=== PATIENT | male | born 1990 | race Caucasian/White ===

== ENCOUNTER 2018-01-20 15:55 | Emergency (ER) | payer OTHER, SELFPAY ==
[2018-01-20 15:56] VITALS: BP 119/86; PULSE 130; RESP 24; TEMP 36.7; O2SAT 99; BMI 42.3
[2018-01-20 16:04] VITALS: O2SAT 99
--- NOTE | 2018-01-20 16:09 | EKG12_ITS ---
Test Reason : SOB Blood Pressure : / mmHG Vent. Rate : 119 BPM Atrial Rate : 119 BPM P-R Int : 150 ms QRS Dur : 090 ms QT Int : 306 ms P-R-T Axes : 040 -03 063 degrees QTc Int : 430 ms Sinus tachycardia Otherwise normal ECG Confirmed by NICOLAS BRIGGS, RICHARD ([id number]), editorial project manager KAVITA DAILEY ([id number]) on 01/22/2018 12:58:41 PM Referred By: QUANG Confirmed By:RICHARD VALENZUELA MD
--- NOTE | 2018-01-20 16:09 | RAD_ITS ---
STUDY: X-RAY CHEST REASON FOR EXAM: Male, 28 years old. Cough. TECHNIQUE: Frontal and lateral views of the chest. COMPARISON: November 20, 2017 FINDINGS: There is low volume inspiration. There is no demonstrated pleural abnormality. Normal size heart. Normal mediastinum and lawrence. Normal visualized pulmonary arteries. Normal visualized aortic arch and descending thoracic aorta. Normal visualized thoracic spine. Normal visualized ribs, clavicles, and shoulders. There is no demonstrated abnormality of the visualized soft tissue structures of the upper abdomen. RAD/Chest PA and Lateral IMPRESSION: Low-volume inspiration. No acute pathology. Electronically Signed: Roland Chamberlain MD at 16:42 EDT , Service support ,
[2018-01-20] MEDS: Albuterol 2.5 MG/3 ML VIAL.NEB. INHALATION (16:11)
[2018-01-20] MEDS: Ipratropium/Albuterol Sulfate 3 ML AMPUL.NEB INHALATION (16:11)
[2018-01-20 16:12] VITALS: PULSE 124; RESP 22
--- NOTE | 2018-01-20 16:18 | ED.DCSUM_ITS ---
- ER Visit Summary Date of Service: 01/20/18 Chief Complaint: Shortness of breath and cough History of Present Illness: The patient is a 28 M presenting for evaluation secondary shortness of breath and cough. Patient states that he does have an underlying history of asthma, really has not had any issues since he was a child. Patient states however that a month ago he was in with a respiratory illness and was sent home with a rescue inhaler. Patient states that he had been doing well, went to the [employer] for his birthday yesterday, and when he woke up today states that he had basically a sudden onset of wheezing shortness of breath and very frequent cough. He does endorse some chest tightness but no chest pain. Occasional dizziness. Patient states that he has had some posttussive emesis secondary to this. 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 Denies any history of cardiac disease. He has not had any travel longer than that what it took him to get to [place]. No recent immobilization. No hemoptysis. No other constitutional symptoms. Physical Examination: Vital signs notable for heart rate of 130, respiratory rate of 24, pulse ox 99%. Well-nourished well-developed obese male no acute distress. Head normocephalic. Moist mucous membranes. Oropharynx clear, neck was supple no lymphadenopathy. Heart was regular and tachycardic no murmurs. Lungs sounds showed evidence of very mild wheezes throughout the lung hoskins no evidence of retractions or respiratory distress. Abdomen soft nontender. Calves are supple no palpable cord no evidence of skin changes of the lower extremities. Patient was alert and oriented. Test Results: EKG shows a sinus rate of [address] segments, normal T waves, normal intervals. No evidence of right ventricular strain or S1 , Q3, T3 morphology. PA and lateral chest x-ray by my personal interpretation as well as radiology is negative with some hypoinflation. D-dimer found to be negative. Emergency Department Course and Treatment: Patient presented for evaluation secondary to frequent cough and shortness of breath. Patient was evaluated with a chest x-ray which was negative, an EKG which showed tachycardia. Patient was given a DuoNeb and an albuterol treatment is prednisone. Repeat evaluation showed he had improvement, but still maintained some tachycardia and frequent coughing. I cannot totally rule the patient out for pulmonary embolism without d-dimer, so this was performed and was found to be negative. Patient does have a mild amount of wheezing associated with this, he has normal oxygenation, is otherwise nontoxic do not believe that further workup is necessary. Patient likely has a mild asthma exacerbation at this point, he will be treated with a course of prednisone and follow-up with his primary care physician. Disposition: Discharge Impression: 1. Asthma exacerbation This note was generated with [employer] dictation software. It may contain incorrect words, spelling, and punctuation that were not noted in review of the chart prior to signing ED Disposition - Plan for ED Patient: Disposition: Home or Assisted Living Chief Complaint: Shortness of Breath Diagnosis: Asthma exacerbation Instructions: ED Reactive Airway Disease Prescriptions: Prednisone [Deltasone] 60 mg PO DAILY #15 tab Referrals: Carly Vance DO [STAFF PHYSICIAN] -
[2018-01-20] MEDS: MethylPREDNISolone 125 MG/2 ML Vial 60 MG IV (16:23)
[2018-01-20 17:11] LABS: D-Dimer Quantitative (DVT/PE) < 0.27 FEU/ug/m (0.27-0.49)
[2018-01-20] MEDS: Benzonatate 100 MG Capsule 200 MG PO (17:22)
[2018-01-20 17:44] VITALS: BP 137/73; PULSE 89; RESP 18; TEMP 36.6; O2SAT 99
== END 2018-01-20 17:45 | disposition home or self-care (01) ==
PROVIDERS: Emergency Provider Emergency Medicine
DX: J45.901 Unspecified asthma with (acute) exacerbation (principal); E66.9 Obesity, unspecified; Z68.41 Body mass index [BMI] 40.0-44.9, adult; Z72.0 Tobacco use
CPT/HCPCS: 71046; 85379; 93005; 94640; 96374; 99283

== ENCOUNTER 2018-01-21 08:13 | Observation (INO) | payer OTHER, SELFPAY ==
[2018-01-21] VITALS (10 sets, daily range): BP systolic 107–152; BP diastolic 63–99; PULSE 101–131; RESP 16–22; TEMP 36.7–36.8; O2SAT 91–97; BMI 42.3; BMI 41.4; BMI 41.5
--- NOTE | 2018-01-21 08:30 | RAD_ITS ---
STUDY: X-RAY CHEST REASON FOR EXAM: Male, 28 years old. Chest tightness TECHNIQUE: PA and lateral views of the chest. COMPARISON: 01/20/2018 FINDINGS: EKG leads overlie the chest The lungs are clear and expanded. There is no demonstrated pleural abnormality. Normal size heart. Normal mediastinum and lawrence. Normal visualized pulmonary arteries. Normal visualized aortic arch and descending thoracic aorta. Normal visualized thoracic spine. Normal visualized ribs, clavicles, and shoulders. There is no demonstrated abnormality of the visualized soft tissue structures of the upper abdomen. RAD/Chest PA and Lateral IMPRESSION: Normal x-ray examination of the chest. Electronically Signed: Christopher Brown MD at 9:27 EDT , Service support ,
--- NOTE | 2018-01-21 08:30 | EKG12_ITS ---
Test Reason : ASTHMA Blood Pressure : / mmHG Vent. Rate : 111 BPM Atrial Rate : 111 BPM P-R Int : 148 ms QRS Dur : 094 ms QT Int : 344 ms P-R-T Axes : 049 005 041 degrees QTc Int : 467 ms Sinus tachycardia Otherwise normal ECG Confirmed by NICOLAS BRIGGS, RICHARD ([id number]), editor school photograph KAVITA DAILEY ([id number]) on 01/22/2018 1:15:08 PM Referred By: DEVYN Confirmed By:RICHARD VALENZUELA MD
[2018-01-21] MEDS: Albuterol 2.5 MG/3 ML VIAL.NEB. INHALATION ×4 (08:40→19:40)
[2018-01-21] MEDS: Ipratropium/Albuterol Sulfate 3 ML AMPUL.NEB INHALATION (08:40)
[2018-01-21 08:49] LABS: Absolute Lymphocyte Count 1.02 X10^3/ul (0.83-4.51); Absolute Neutrophil Count 4.7 X10^3/uL (2.0-7.7); Basophil# 0.01 X10^3/uL; Basophil% 0.2 % (0-1); Hemoglobin 15.6 g/dl (13.0-16.5); Lymphocyte # 1.02 X10^3/ul (4.0); Lymphocyte % 15.7 % (19-41); Mean Corp Hgb Conc 35.5 g/gl (32-36); Mean Corpuscular Hgb 30.4 pg (27.0-32.0); Mean Corpuscular Volume 85.6 fL (80-94); Mean Platelet Vol. 10.4 fl (6.2-12.0); Monocyte% 12.3 % (0-10); Neutrophil # 4.66 X10^3/uL (2.7-7.7); Neutrophil % 71.6 % (47-70); POSITIVE COUNT NO; POSITIVE DIFFERENTIAL NO; POSITIVE MORPHOLOGY NO; Platelet Count 263 K/mm3 (150-450); RBC Distribution Width CV 12.6 % (11.6-14.6); RBC Distribution Width SD 39.1 fl (35.1-43.9); Red Blood Count 5.14 M/mm3 (4.6-6.2); White Blood Count 6.5 K/mm3 (4.4-11.0)
[2018-01-21] MEDS: MethylPREDNISolone 125 MG/2 ML Vial IV (09:16)
[2018-01-21 09:22] LABS: Anion Gap 13 (5-15); BUN 16 mg/dL (7-18); BUN/Creat Ratio 13.3 RATIO (10-20); Calcium,Total 8.2 mg/dL (8.5-10.1); Chloride 99 mmol/L (98-107); EST Glomerular Filtration Rate 77 mL/min (>60); Est Glom Filt Rate - Afr Amer 93 mL/min (>60); Estimated Creatinine Clearance 118.48 ml/min; Glucose 469 mg/dL (74-106); Potassium 3.9 mmol/L (3.5-5.1); Sodium Level 133 mmol/L (136-145)
[2018-01-21] MEDS: 0.9% Normal Saline 1,000 ML 999 ML IV ×2 (09:26→11:09)
--- NOTE | 2018-01-21 11:46 | NURSING ---
212 ASTHMA FLARE UP, UNCONTROLLED DM TERI
--- NOTE | 2018-01-21 12:27 | HP.PCM_ITS ---
Addendum entered and electronically signed by BETTY Vuong 01/21/18 12:28: Code Visit surgical hx - prior toe surgery Original Note: Problem List (1) Asthma exacerbation Status: Acute (2) Diabetes Status: Chronic Qualifiers: Diabetes mellitus type: type 2 (3) Morbid obesity Status: Chronic History of Present Illness Date of Admission: 01/21/18 Chief Complaint: SOB The patient is a 28 year old M with a hx of asthma and prediabetes who presents to the ER with SOB. He was here yesterday for SOB and wheezing, he was given steroids and breathing treatments and sent home. This morning he felt that his asthma had returned and he returned to the ER. He was given steroids and breathing treatments again and improved significantly. He has not had problems with asthma in a while, he does have a nebulizer but has not used it in a long time and his albuterol is . He was however found to have severely high blood sugar. He stated that he had prediabetes in high school. He states that he has 200 lb weight loss over two years but feels it is due to exercise and diet. He denies urinary frequency or excessive thirst. His ketone level is negative. He has not been treated for DM in the past. He currently does not feel SOB or wheezy in the ER. No CP. No dizziness or LH. No palp, although he remains somewhat tachy. [] Past Medical History Past Medical History (Chronic Problems): Chronic Problems Diabetes (Chronic) Morbid obesity (Chronic) Allergies erythromycin base [Erythromycin Base] Allergy (Verified 01/20/18 15:58) Rash Home Medications: Ambulatory Orders Medication Instructions Recorded Albuterol Aerosols [Ventolin 2.5 mg INHALATION Q2H PRN PRN #30 11/20/17 Aerosols] vial.neb. Prednisone [Deltasone] 60 mg PO DAILY #15 tab 01/20/18 Lives: With Family Smoking Status: Never smoker Tobacco Use: Non-smoker Alcohol: Occasional Drugs: None - *Family History Maternal History Items: No pertinent history Paternal History Items: Diabetes Review of Systems Constitutional: Reports: Weight Change - weight loss 200 lb x 2 years. Denies: Chills, Fever HEENT: Denies: Head Aches, Sinus Congestion, Sinus Drainage Cardiovascular: Denies: Chest Pain, Palpitations Respiratory: Reports: Shortness of Breath, Wheezing. Denies: Cough, Shortness of breath at rest, Sputum production Gastrointestinal: Denies: Abdominal Pain, Nausea, Vomiting Genitourinary: Denies: Dysuria Musculoskeletal: Denies: Joint Pain, Joint Tenderness Skin: Denies: Rash, Wounds Neurological: Denies: Numbness, Tingling, Focal weakness Psychiatric: Denies: Anxiety, Depression, Homicidal Ideations, Suicidal Ideations Hematologic/ Lymphatic: Denies: Easy Bruising, Easy Bleeding VTE Information - Inpt Only VTE Present on Admission: No VTE Mechan Device Prophylaxis: SCD's VTE Pharm Prophylaxis ordered?: No Patient Problems: Active and Suspected Problems Asthma exacerbation (Acute) - Physical Exam General: Alert, Oriented x3, Cooperative HEENT: Atraumatic, PERRLA, EOMI, Normocephalic Neck: Supple, No JVD, Negative Carotid Bruits Lungs: Clear to auscultation, Normal air movement Cardiovascular: Regular rate, No murmurs Abdomen: Bowel Sounds Present, Soft, Non Tender, Obese Extremities: No edema, Capillary Refill Less than 3 Seconds Skin: No rashes, No breakdown Musculoskeletal: No Tenderness to Palpation of Joints or Extremities Neurological: Cranial nerves II-XII grossly intact Psych/Mental Status: Normal Affect, Appropriate, Alert and oriented to time, place, person, mood and affect Vital Signs Temp Pulse Resp BP Pulse Ox 98.2 F 113 H 17 120/63 91 01/21/18 08:13 01/21/18 11:52 01/21/18 11:52 01/21/18 11:52 01/21/18 11:52 Assessment/Plan Active and Suspected Problems Asthma exacerbation (Acute) 1. Asthma exacerbation failed outpatient therapy, presented to ED 2 days in a row - significantly improved in ER not requiring O2. Pt will be maintained on aerosols and steroids. He will need new nebulizer meds at [place] and a rescue inhaler. CXR normal. He is not a smoker. Troponin neg. EKG sinus tach. 2. Suspect T2DM - severely uncontrolled glucose in the ER and significant weight loss. Check A1C and plan to start insulin therapy. Suggest 0.2 u/kg levemir + Sliding scale insulin. He has not been treated before so he would be able to start orals. Acetone level neg. 3. Hyponatremia - suspect pseudohyponatremia 2/2 glucose. Check AM BMP. 4. Morbid obesity - dietary consult. DVT ppx: SCDs This patient was seen by Tyler Barton PA-C under the supervision of Doctor Hernandez.
[2018-01-21 13:10] LABS: Bedside Glucose 432 mg/dL (70-110)
[2018-01-21 13:24] LABS: Hemoglobin A1c 10.9 % (4.2-6.3)
[2018-01-21] MEDS: 0.9% Normal Saline 1,000 ML 125 ML IV ×2 (13:37→21:16)
[2018-01-21] MEDS: 0.9% NaCl Peripheral Flush Adult/Peds IV (13:37)
[2018-01-21 16:11] LABS: Bedside Glucose 418 mg/dL (70-110)
[2018-01-21] MEDS: Budesonide Respules 0.5 MG/2 ML AMPUL.NEB. INHALATION (19:40)
[2018-01-22 00:41] LABS: Bedside Glucose 368 mg/dL (70-110)
[2018-01-22 00:59] VITALS: PULSE 103; RESP 16
[2018-01-22] MEDS: Albuterol 2.5 MG/3 ML VIAL.NEB. INHALATION ×2 (00:59→06:58)
[2018-01-22 03:13] VITALS: BP 130/78; PULSE 92; RESP 16; TEMP 36.6; O2SAT 96
[2018-01-22] MEDS: 0.9% Normal Saline 1,000 ML 125 ML IV (05:23)
[2018-01-22 06:35] LABS: Bedside Glucose 239 mg/dL (70-110)
[2018-01-22 06:58] VITALS: PULSE 90; RESP 18; O2SAT 95
[2018-01-22] MEDS: Budesonide Respules 0.5 MG/2 ML AMPUL.NEB. INHALATION (06:58)
[2018-01-22 09:13] VITALS: BP 121/67; PULSE 99; RESP 16; TEMP 36.8; O2SAT 96
[2018-01-22 10:10] LABS: Bedside Glucose 291 mg/dL (70-110)
--- NOTE | 2018-01-22 11:05 | PCM.DC ---
- Discharge Diagnoses Current Active Problems: Current Active and Chronic Problems Asthma exacerbation (Acute) Diabetes (Chronic) Morbid obesity (Chronic) You will use the following diet at home:: Calorie/Carbohydrate Controlled (specify 1200, 1400, etc) - 1800 yann/day Your food should be the consistency of: Regular Your liquids should be the consistency of: Regular/Thin Discharge Activity: Return to Normal Activity Additional Instructions: Please check your blood sugar at least once per day, preferably in the morning before you eat, and record the date, time, and blood sugar reading in a log, and present this data to your doctor at each follow up appointment. Allergies/Adverse Reactions: Allergies erythromycin base [Erythromycin Base] Allergy (Verified 01/20/18 15:58) Rash Medications to take at Discharge Albuterol Aerosols [Ventolin Aerosols] 2.5 mg INHALATION Q4H PRN PRN #30 vial.neb. 01/22/18 Albuterol IH (ProAir) [Proair Hfa] 1 puff INHALATION Q6H PRN PRN #1 inhaler 01/22/18 Insulin Detemir [Levemir FlexPen] 20 units SC BID #1 insuln.pen 01/22/18 Metformin(XR) [Glucophage Xr] 1,000 mg PO BID #60 tab 01/22/18 The following prescriptions were given: Albuterol Aerosols [Ventolin Aerosols] 2.5 mg INHALATION Q4H PRN PRN #30 vial.neb. PRN Reason: Sob &/Or Wheezing Albuterol IH (ProAir) [Proair Hfa] 1 puff INHALATION Q6H PRN PRN #1 inhaler PRN Reason: Sob &/Or Wheezing Insulin Detemir [Levemir FlexPen] 20 units SC BID #1 insuln.pen Metformin(XR) [Glucophage Xr] 1,000 mg PO BID #60 tab Primary Care Physician: Care Physician,No Primary [Primary Care Provider] - Please Follow Up With: Maki Marquez MD - PCP When: Next Sunday Please Follow Up With: ELIU De Jesus - Endocrine REGIONAL RETAIL SALES MANAGER When: Appointment in February Proposed Discharge Date: 01/22/18
--- NOTE | 2018-01-22 11:19 | CASEMGMT ---
See RN CM Assessment Link. -Intro role of CM to patient in room. He states he has good understanding of diabetic teaching, has completed teach back for glood glucose monitoring. -Discussed need for f/u. Appts made with Dr. Marquez and Meghana Headley. Pt states he will be compliant to see physicians. -Questions answered. Tyler Castro to provide script for supplies and new medications. Johnny KELLYN RN ACM
--- NOTE | 2018-01-22 15:35 | PCM.DC.SUM ---
Discharge Date and Diagnosis Date of Admission: 01/21/18 Date of Discharge: 01/22/18 - Primary Discharge Diagnosis Acute asthma exacerbation Severely uncontrolled type 2 diabetes mellitus-no prior diagnosis Morbid obesity - Secondary Discharge Diagnosis Chronic Problems Diabetes (Chronic) Morbid obesity (Chronic) Hospital Course and Treatment Imaging Results: RAD/Chest PA and Lateral IMPRESSION: Normal x-ray examination of the chest. Operations: None Procedures: None Summary of Care Provided: Physical exam on day of discharge: General: Resting comfortably NAD Psych: A/Ox3 normal affect HEENT: PEARRLA AT NC Neck: Supple NT CV: RRR no m/t/r/g/h Resp: CTA, I do not appreciate any wheezing this morning. Abd: [id number] Soft NT no guarding or rigidity, morbid obesity Ext: DP2+= no edema Skin: W/D normal turgor Lymph/Heme: No active bleeding or adenopathy Neuro: CN2-12 intact Hospital course: The patient is a 28 year old M with a past medical history of asthma, morbid obesity who presented to the emergency room with shortness of breath and wheezing. He had presented to the ER the day prior for the same thing was given aerosols and steroids and sent home. He woke up the morning of presentation and felt that his symptoms had returned. When he represented to the emergency room he was treated with steroids and aerosols after which his symptoms improved significantly and he had no oxygen requirement, however he was found to have a severely elevated blood sugar at 496. Patient reported that he thought he was prediabetic in high school but never been diagnosed with diabetes. He also revealed that he had lost about 200 pounds over the past 2 years. He is admitted to the general medical floor for recurrent acute asthma exacerbation and for severely uncontrolled diabetes. An A1c was checked which demonstrated severe diabetes at a level of 10.9. He was started on long-acting insulin and metformin. He was given diabetic education and dietary/nutrition consult. He was given diabetic education including glucometer use, proper insulin injections, and dietary decisions. The patient did not have a PCP and we arranged for him to follow-up in 10 days with a GP in the area, will also arrange for him to see ROGELIO jonas for endocrinology. He was discharged home in stable condition with an albuterol inhaler, albuterol nebulizer treatments as he does have a home nebulizer, metformin, and Levemir. This patient was seen by Tyler Barton PA-C under the supervision of Doctor David. [] Discharge Diet: 1999 Calorie Control Diet Discharge Activity: Return to Normal Activity Home Medications: Medications to take at Discharge Albuterol Aerosols [Ventolin Aerosols] 2.5 mg INHALATION Q4H PRN PRN #30 vial.neb. 01/22/18 Albuterol IH (ProAir) [Proair Hfa] 1 puff INHALATION Q6H PRN PRN #1 inhaler 01/22/18 Insulin Detemir [Levemir FlexPen] 20 units SC BID #1 insuln.pen 01/22/18 Metformin(XR) [Glucophage Xr] 1,000 mg PO BID #60 tab 01/22/18 Following Prescrptions Were Given to Patient: Albuterol Aerosols [Ventolin Aerosols] 2.5 mg INHALATION Q4H PRN PRN #30 vial.neb. PRN Reason: Sob &/Or Wheezing Albuterol IH (ProAir) [Proair Hfa] 1 puff INHALATION Q6H PRN PRN #1 inhaler PRN Reason: Sob &/Or Wheezing Insulin Detemir [Levemir FlexPen] 20 units SC BID #1 insuln.pen Metformin(XR) [Glucophage Xr] 1,000 mg PO BID #60 tab Primary Care Physician: Care Physician,No Primary [Primary Care Provider] - Please Follow Up With: Maki Marquez MD - PCP When: Next Sunday Please Follow Up With: ELIU De Jesus - Endocrine FACILITIES ASSISTANT When: Appointment in February Disposition: Home Minutes spent on discharge:: 40 Patient Condition:: Stable Medical Necessity - Tobacco Use Smoking Status: Never smoker Tobacco Use: Non-smoker Meaningful Use Info Meaningful Use Diagnoses (Choose all that apply): None applicable
--- NOTE | 2018-01-22 15:41 | DS.PCM_ITS ---
Discharge Date and Diagnosis Date of Admission: 01/21/18 Date of Discharge: 01/22/18 - Primary Discharge Diagnosis Acute asthma exacerbation Severely uncontrolled type 2 diabetes mellitus-no prior diagnosis Morbid obesity - Secondary Discharge Diagnosis Chronic Problems Diabetes (Chronic) Morbid obesity (Chronic) Hospital Course and Treatment Imaging Results: RAD/Chest PA and Lateral IMPRESSION: Normal x-ray examination of the chest. Operations: None Procedures: None Summary of Care Provided: Physical exam on day of discharge: General: Resting comfortably NAD Psych: A/Ox3 normal affect HEENT: PEARRLA AT NC Neck: Supple NT CV: RRR no m/t/r/g/h Resp: CTA, I do not appreciate any wheezing this morning. Abd: [id number] Soft NT no guarding or rigidity, morbid obesity Ext: DP2+= no edema Skin: W/D normal turgor Lymph/Heme: No active bleeding or adenopathy Neuro: CN2-12 intact Hospital course: The patient is a 28 year old M with a past medical history of asthma, morbid obesity who presented to the emergency room with shortness of breath and wheezing. He had presented to the ER the day prior for the same thing was given aerosols and steroids and sent home. He woke up the morning of presentation and felt that his symptoms had returned. When he represented to the emergency room he was treated with steroids and aerosols after which his symptoms improved significantly and he had no oxygen requirement, however he was found to have a severely elevated blood sugar at 496. Patient reported that he thought he was prediabetic in high school but never been diagnosed with diabetes. He also revealed that he had lost about 200 pounds over the past 2 years. He is admitted to the general medical floor for recurrent acute asthma exacerbation and for severely uncontrolled diabetes. An A1c was checked which demonstrated severe diabetes at a level of 10.9. He was started on long-acting insulin and metformin. He was given diabetic education and dietary/nutrition consult. He was given diabetic education including glucometer use, proper insulin injections, and dietary decisions. The patient did not have a PCP and we arranged for him to follow-up in 10 days with a GP in the area, will also arrange for him to see ROGELIO jonas for endocrinology. He was discharged home in stable condition with an albuterol inhaler, albuterol nebulizer treatments as he does have a home nebulizer, metformin, and Levemir. This patient was seen by Tyler Barton PA-C under the supervision of Doctor David. [] Discharge Diet: 1999 Calorie Control Diet Discharge Activity: Return to Normal Activity Home Medications: Medications to take at Discharge Albuterol Aerosols [Ventolin Aerosols] 2.5 mg INHALATION Q4H PRN PRN #30 vial.neb. 01/22/18 Albuterol IH (ProAir) [Proair Hfa] 1 puff INHALATION Q6H PRN PRN #1 inhaler Insulin Detemir [Levemir FlexPen] 20 units SC BID #1 insuln.pen 01/22/18 Metformin(XR) [Glucophage Xr] 1,000 mg PO BID #60 tab 01/22/18 Following Prescrptions Were Given to Patient: Albuterol Aerosols [Ventolin Aerosols] 2.5 mg INHALATION Q4H PRN PRN #30 vial.neb. PRN Reason: Sob &/Or Wheezing Albuterol IH (ProAir) [Proair Hfa] 1 puff INHALATION Q6H PRN PRN #1 inhaler PRN Reason: Sob &/Or Wheezing Insulin Detemir [Levemir FlexPen] 20 units SC BID #1 insuln.pen Metformin(XR) [Glucophage Xr] 1,000 mg PO BID #60 tab Primary Care Physician: Care Physician,No Primary [Primary Care Provider] - Please Follow Up With: Maki Marquez MD - PCP When: Next Sunday Please Follow Up With: ELIU De Jesus - Endocrine PHOTOGRAPH PRINTER When: Appointment in February Disposition: Home Minutes spent on discharge:: 40 Patient Condition:: Stable Medical Necessity - Tobacco Use Smoking Status: Never smoker Tobacco Use: Non-smoker Meaningful Use Info Meaningful Use Diagnoses (Choose all that apply): None applicable
--- NOTE | 2018-02-06 02:31 | ED.VISSUMM ---
- ER Visit Summary Date of Service: 01/21/18 Dictation was not completed. Late entry on February 06, 2018. Chief Complaint: Cannot breathe History of Present Illness: The patient is a 28 M with trouble breathing and chest tightness. This came on gradually over several days. Patient was seen previously in the emergency department and treated with aerosols and steroids. He was sent home. His symptoms are worse today. Physical Examination: Tachycardic at 125. Respiratory rate 22. Afebrile. Very mild respiratory distress. Wheezing in all hoskins. Diminished sounds as well. Heart tachycardic. The remainder of the exam is unremarkable. Test Results: EKG showed sinus rhythm at a rate of 111. Chest x-ray was normal. CBC normal. Troponin normal. Acetone is negative. Glucose 496. Emergency Department Course and Treatment: Patient was treated with breathing treatments and steroids. He also received a fluid bolus. Patient has a history of borderline diabetes and it looks like the steroids have caused his glucose to increase. He is not in DKA or any hyperosmolar state. I do believe he will benefit from inpatient care. He will need continued steroids and I am concerned about his blood sugars. He will likely benefit from insulin at least in the short-term. I spoke with the hospitalist to evaluate. Treatment Plan: As above Disposition: Admission Impression: 1. Asthma exacerbation 2. Hyperglycemia This note was generated with [employer] dictation software. It may contain incorrect words, spelling, and punctuation that were not noted in review of the chart prior to signing ED Disposition - Plan for ED Patient: Disposition: Acute Care Hospital [facility] Chief Complaint: Asthma
--- NOTE | 2018-02-06 02:38 | ED.DCSUM_ITS ---
- ER Visit Summary Date of Service: 01/21/18 Dictation was not completed. Late entry on February 06, 2018. Chief Complaint: Cannot breathe History of Present Illness: The patient is a 28 M with trouble breathing and chest tightness. This came on gradually over several days. Patient was seen previously in the emergency department and treated with aerosols and steroids. He was sent home. His symptoms are worse today. Physical Examination: Tachycardic at 125. Respiratory rate 22. Afebrile. Very mild respiratory distress. Wheezing in all hoskins. Diminished sounds as well. Heart tachycardic. The remainder of the exam is unremarkable. Test Results: EKG showed sinus rhythm at a rate of 111. Chest x-ray was normal. CBC normal. Troponin normal. Acetone is negative. Glucose 496. Emergency Department Course and Treatment: Patient was treated with breathing treatments and steroids. He also received a fluid bolus. Patient has a history of borderline diabetes and it looks like the steroids have caused his glucose to increase. He is not in DKA or any hyperosmolar state. I do believe he will benefit from inpatient care. He will need continued steroids and I am concerned about his blood sugars. He will likely benefit from insulin at least in the short-term. I spoke with the hospitalist to evaluate. Treatment Plan: As above Disposition: Admission Impression: 1. Asthma exacerbation 2. Hyperglycemia This note was generated with [employer] dictation software. It may contain incorrect words, spelling, and punctuation that were not noted in review of the chart prior to signing ED Disposition - Plan for ED Patient: Disposition: Acute Care Hospital [facility] Chief Complaint: Asthma
== END 2018-01-22 11:55 | disposition home or self-care (01) ==
LOC: ED 08:47 → MS2 12:02
PROVIDERS: Admitting Provider Internal Medicine; Emergency Provider Emergency Medicine; Visit Provider Internal Medicine
DX: J45.901 Unspecified asthma with (acute) exacerbation (principal); E11.65 Type 2 diabetes mellitus with hyperglycemia; E66.01 Morbid (severe) obesity due to excess calories; Z68.41 Body mass index [BMI] 40.0-44.9, adult; Z71.3 Dietary counseling and surveillance; E87.1 Hypo-osmolality and hyponatremia
CPT/HCPCS: 71046; 80048; 82009; 82962; 83036; 84484; 85025; 93005; 94640; 96361; 96374; 97802; 99218; 99283; J7030; A4216; G0378

== ENCOUNTER 2019-07-16 08:27 | Emergency (ER) | payer OTHER, SELFPAY ==
[2019-07-16 08:28] VITALS: BP 142/72; PULSE 109; RESP 17; TEMP 36.8; O2SAT 97; BMI 40.8
--- NOTE | 2019-07-16 08:39 | VDLE_ITS ---
Reason For Study: Pain RIGHT GSV is normal. CFV is compressible, spontaneous, phasic, competent and demonstrates normal augmentation. FV is compressible, spontaneous, phasic, competent and demonstrates normal augmentation. POP V is compressible, spontaneous, phasic, competent and demonstrates normal augmentation. T/P Trunk is compressible. PTV is compressible. RT PerV is compressible. Procedure Exam performed portable in ED. A preliminary report was called and/or faxed to [place]. Interpretation Summary There is no evidence of right lower extremity deep vein thrombosis. Right great saphenous vein appears patent and compressible segmentally. Ordering Physician: Tomasz Golden Performed By: Venessa Palomo RVT
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
--- NOTE | 2019-07-16 09:50 | ED.DEP ---
ED Disposition - Plan for ED Patient: Instructions: CONTUSION, Lower Extremity, MUSCLE STRAIN, Extremity Prescriptions: Naproxen [Naprosyn] 500 mg PO BID PRN #20 tab Prescription Printed Referrals: Care Physician,No Primary [Primary Care Provider] - 3-5 Days
== END 2019-07-16 09:59 | disposition home or self-care (01) ==
PROVIDERS: Emergency Provider Emergency Medicine
DX: S76.912A Strain of unspecified muscles, fascia and tendons at thigh level, left thigh, initial encounter (principal); R23.4 Changes in skin texture; X58.XXXA Exposure to other specified factors, initial encounter; Y93.9 Activity, unspecified; Y92.9 Unspecified place or not applicable; J45.909 Unspecified asthma, uncomplicated; E11.9 Type 2 diabetes mellitus without complications; E66.9 Obesity, unspecified; Z79.4 Long term (current) use of insulin; Z79.84 Long term (current) use of oral hypoglycemic drugs; F17.220 Nicotine dependence, chewing tobacco, uncomplicated
CPT/HCPCS: 90471; 93971; 99284

== ENCOUNTER 2020-08-17 12:56 | Emergency (ER) | payer OTHER, SELFPAY ==
[2020-08-17 12:57] VITALS: BP 162/98; PULSE 115; RESP 16; TEMP 36.1; O2SAT 100; BMI 32.3
--- NOTE | 2020-08-17 13:25 | RAD_ITS ---
STUDY: X-RAY - LEFT KNEE REASON FOR EXAM: Male, 30 years old. Anterior knee pain and swelling x 3 days, NKI TECHNIQUE: 4 view(s) of the knee. COMPARISON: None. FINDINGS: Normal visualized distal femur. Normal visualized proximal tibia and fibula. Normal proximal tibiofibular articulation. Normal medial femorotibial compartment. Normal lateral femorotibial compartment. Normal patellofemoral articulation. The soft tissue structures are unremarkable. RAD/Knee 4 or More Views IMPRESSION: Normal x-ray examination of the knee. Electronically Signed: Castillo Vora, at 14:55 EDT , Service support ,
--- NOTE | 2020-08-17 13:56 | ED.VIS.GEN ---
History of Present Illness Chief Complaint: Lower Extremity Injury Informant: Patient Past Medical History - Allergies and Home Meds Allergies/Adverse Reactions: Allergies erythromycin base [Erythromycin Base] Allergy (Verified 08/17/20 12:56) Rash Primary Care Physician: Care Physician,No Primary [Primary Care Provider] - Smoking Status: Never smoker - Family History Maternal Family History: Family History (Last Reviewed 03/19/18 @ 10:52 by Dafne Tovar) Unknown Asthma Father Diabetes Kidney disease Family History: Reports: No pertinent history Paternal Family History: Family History (Last Reviewed 03/19/18 @ 10:52 by Dafne Tovar) Unknown Asthma Father Diabetes Kidney disease Family History: Reports: Diabetes Physical Exam Vital Signs/Narrative: Vital Signs Temp Pulse Resp BP Pulse Ox 08/17/20 12:57 97 F L 115 H 16 162/98 H 100 ED Disposition - Plan for ED Patient: Referrals: Care Physician,No Primary [Primary Care Provider] -
--- NOTE | 2020-08-17 14:06 | ED.DCSUM_ITS ---
- ER Visit Summary Date of Service: 08/17/20 Chief Complaint: Left knee pain History of Present Illness: The patient is a 30 M who presents with left knee pain that began yesterday. Patient denies any trauma or injury. Patient noticed increased swelling today. Pain is a constant ache but sharp at times. Patient states ppain is worse with walking. Patient denies any fevers or chills. Patient denies any redness. Patient states he went to an urgent care clinic today and was told to come to the emergency department. Physical Examination: Vital signs are stable. Patient is afebrile. Patient is in no acute distress. Musculoskeletal exam showed diffuse tenderness around the knee. There is no erythema or warmth. There is no edema or ecchymosis. There is a mild effusion. There is no deformity. Range of motion is limited in all motions secondary to pain. There is no laxity but there is guarding on exam. Extensor mechanism is intact. Test Results: X-rays of the left knee were obtained. There is no acute fracture. There is a mild to moderate effusion. Emergency Department Course and Treatment: Patient was advised of his findings. Patient was given a prescription for Naprosyn. Patient was instructed to ice and elevate the left knee. Patient was given restrictions for work. Patient was instructed to follow up with a primary care physician in 5-7 days. Patient understood and was agreeable with the plan. All questions were answered. Disposition: Discharge home Impression: Left knee sprain This note was generated with [employer] dictation software. It may contain incorrect words, spelling, and punctuation that were not noted in review of the chart prior to signing ED Disposition - Plan for ED Patient: Disposition: Home or Assisted Living Diagnosis: Left knee sprain Instructions: ED Sprain Knee Prescriptions: Naproxen [Naprosyn] 500 mg PO BID PRN #20 tab Transmission Status: Pending to [facility]/pharmacy #[id number] Referrals: Keith Lyons DO [NON CLINICAL AFFILIATE] - 5-7 Days
[2020-08-17 14:37] VITALS: BP 121/73; PULSE 108; RESP 14; O2SAT 98
== END 2020-08-17 14:37 | disposition home or self-care (01) ==
PROVIDERS: Emergency Provider Emergency Medicine
DX: S83.92XA Sprain of unspecified site of left knee, initial encounter (principal); X58.XXXA Exposure to other specified factors, initial encounter
CPT/HCPCS: 73564; 99282

== ENCOUNTER → 2023-04-24 | Outpatient (CLI) | payer OTHER, SELFPAY ==
[2023-04-24 18:08] LABS: Absolute Lymphocyte Count 2.15 X10^3/uL (0.83-4.51); Absolute Neutrophil Count 3.7 X10^3/uL (2.0-7.7); Basophil# 0.02 X10^3/uL; Basophil% 0.3 % (0-1); Eosinophil# 0.16 X10^3/uL; Eosinophils% 2.5 % (0-5); Hematocrit 45.5 % (40-54); Hemoglobin 15.3 g/dL (13.0-16.5); Lymphocyte # 2.15 X10^3/ul (0.83-4.51); Lymphocyte % 33.5 % (19-41); Mean Corp Hgb Conc 33.6 g/dL (32-36); Mean Corpuscular Hgb 30.2 pg (27.0-32.0); Mean Corpuscular Volume 89.7 fL (80-94); Mean Platelet Vol. 10.8 fl (6.2-12.0); Monocyte# 0.37 X10^3/uL; Monocyte% 5.8 % (0-10); NRBC Flagged by Analyzer 0 % (0-5); Neutrophil # 3.69 X10^3/uL (2.7-7.7); Neutrophil % 57.6 % (47-70); Platelet Count 242 K/mm3 (150-450); RBC Distribution Width CV 12.9 % (11.6-14.6); Red Blood Count 5.07 M/mm3 (4.6-6.2); White Blood Count 6.4 K/mm3 (4.4-11.0)
[2023-04-24 18:59] LABS: ALB/GLOB Ratio 1.2 RATIO (0.9-2.4); AST(SGOT) 15 U/L (15-37); Alanine Aminotransfer ALT/SGPT 35 U/L (16-61); Albumin, Serum 3.8 g/dL (3.2-5.0); Alkaline Phosphatase 74 U/L (45-117); Anion Gap 6 (5-15); BUN 16 mg/dL (7-18); BUN/Creat Ratio 20.1 RATIO (10-20); Calcium,Total 9.1 mg/dL (8.5-10.1); Chloride 107 mmol/L (98-107); Cholesterol 185 mg/dL (200); EST Glomerular Filtration Rate 119 mL/min (>60); Est Glom Filt Rate - Afr Amer 144 mL/min (>60); Globulin 3.3 g/dL (2.2-4.2); Glucose 175 mg/dL (74-106); High Density Lipoprotein 46 mg/dL; Potassium 3.9 mmol/L (3.5-5.1); Protein, Total 7.1 g/dL (6.4-8.2); Sodium Level 140 mmol/L (136-145); Triglycerides 277 mg/dL; Very Low Density Lipoprotein 55 mg/dL (5-40)
== END | disposition home or self-care (01) ==
LOC: MFPLAB 16:24
PROVIDERS: PCP Family Medicine; Visit Provider Family Medicine
DX: E11.9 Type 2 diabetes mellitus without complications (principal)
CPT/HCPCS: 36415; 80053; 80061; 85025

== ENCOUNTER → 2025-04-02 | Outpatient (CLI) | payer OTHER, SELFPAY ==
--- OUTSIDE RECORDS SUMMARY | 2025-04-02 09:27 | XMS RPT_ITS | CCD ---
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 Manager Name Role Phone Blayne Jj Attending Unavailable Sharon Alonso Attending Unavailable Sharon Alonso Primary Care Unavailable PHYSICIAN, NONE Primary Care Physician Unavailab le PHYSICIAN, NONE Primary Care Unavailable ABHIJIT LEMUS DO Attending Unavailable Allergies Allergy Classification Reported Allergen(s) Allergy Type Date of Onset Reaction(s) Facility (2 sources) Erythromycin; Translations: [erythromycin] Drug Allergy 08-17-2020 [facility] (1 source) Erythromycin Drug Allergy 08-17-2020 [facility] Medications Current Medications Medication Drug Class(es) Dates Sig (Normalized) Sig (Original) naproxen 500 mg oral tablet (1 source) Nonsteroidal Anti-inflammatory Drug Start: 08-17-2020 take 500 mg by mouth twice daily as needed Naproxen Active 500 MG PO TWICE DAILY NEEDED August 17, 2020 12:00am Completed/Discontinued Medications Medication Drug Class(es) Dates Sig (Normalized) Sig (Original) albuterol 0.83 mg/ml inhalation solution (1 source) beta2-Adrenergic Agonist Start: 11-20-2017 End: 01-22-2018 take 2.5 mg by inhalation every two hours as needed Albuterol Sulfate Discontinued 2.5 MG INHALATION EVERY 2 HOURS NEEDED November 20, 2017 1:00am January 22, 2018 11:04am 3 ml insulin detemir 100 unt/ml pen injector (3 sources) Insulin Analog Start: 03-19-2018 End: 03-19-2018 Insulin Detemir U-100 (Levemir Flextouch U100 Insulin) 100 unit/mL (3 mL) insulin pen Discontinued 20 UNIT SC TWICE A DAY March 19, 2018 12:00am March 19, 2018 11:35am Start: 02-26-2018 End: 03-19-2018 Insulin Detemir U-100 (Levem ir U-100 Insulin) 100 unit/mL solution Discontinued 20 UNIT SC TWICE A DAY February 26, 2018 12:00am March 19, 2018 11:02am Start: 01-22-2018 End: 02-26-2018 Insulin Detemir U-100 Discon tinued 20 UNITS SC TWICE A DAY January 22, 2018 12:00am February 26, 2018 10:27am 24 hr metFORMIN hydrochloride 500 mg extended release oral tablet (2 sources) Biguanide Start: 01-22-2018 End: 03-20-2018 take 1000 mg by mouth twice daily Metformin Discontinued 1000 MG PO TWICE A DAY 120 March 19, 2018 11:00am March 20, 2018 4:17pm predniSONE 20 mg oral tablet (1 source) Start: 01-20-2018 End: 01-22-2018 take 60 mg by mouth once daily at mealtime Prednisone Discontinued 60 MG PO DAILY January 20, 2018 12:00am January 22, 2018 11:04am With food Problems Problem Classification Problem Date Documented Da te Episodic/Chronic Asthma (2 sources) Exacerbation of asthma; Translations: [Unspecified asthma with (acute) exacerbation] 08-17-2020 Chronic Diabetes mellitus without complication (3 sources) Diabetes mellitus; Translations: [Type 2 diabetes mellitus without complications] Onset: 06-11-2023 08-17-2020 Chronic Open wounds of extremities (1 source) Laceration of forearm; Translations: [Laceration without foreign body of right forearm, initial encounter] Onset: 09-03-2024 Episodic Other nutritional; endocrine; and metabolic disorders (1 source) Morbid obesity; Translations: [Morbid (severe) obesity due to excess calories] 08-17-2020 Chronic Sprains and strains (1 source) Sprain of knee; Translations: [Sprain of unspecified site of left knee, initial encounter] 08-18-2020 Episodic Results Test Name Value Interpretation Reference Range Facility XR FOREARM 2 VIEWS RIGHTon 1 11-03-2023 XR FOREARM 2 VIEWS RIGHT ORIGINAL EXAMINATION: TWO XRAY VIEWS OF THE RIGHT FOREARM 09/03/2024 8:40 pm COMPARISON: None. HISTORY: ORDERING SYSTEM PROVIDED HISTORY: Reason for Exam: laceration, foreign body FINDINGS: There is no evidence of acute fracture. There is normal alignment. No acute joint abnormality. No focal osseous lesion. Mid forearm soft tissue laceration without radiodense foreign body. IMPRESSION: Mid forearm soft tissue laceration without radiodense foreign body. Interpreted by: Caio Walton Preliminary Report By: Caio Walton Electronically signed By Caio Walton Dictated Date: 09/03/2024 8:43:27 PM Prelim Date: 09/03/2024 8:47:01 PM Sign Date: 09/03/2024 8:47:01 PM Ordering Provider: ABHIJIT Badillo [facility] Urgent Care Visit Reporton 0 03-19-2024 Urgent Care Visit Report [facility] [address] , [address] [place] [address] OFFICE VISIT Date of Service: 03/19/24 MR#: [id number] Acct: [id number] Name: MARYAM MYLES Rep #: [id number] 2 : 1990 Provider: BETTY Li Age/Sex: 34/M Location: [facility] Status: Signed Intake Vital Signs 04/24/23 16:17 03/19/24 08:19 03/19/24 08:33 Height 6 ft 5 in 6 ft 4.5 in Weight: 363 lb BMI 43.6 BP 132/96 H 124/86 H Blood Pressure Location Lt brachial Lt brachial Position Sitting Sitting Respiration 18 14 Pulse 95 94 Pulse Source Monitor Auscultation Temp 98.4 F Temp Source Temporal Pulse Oximetry (%) 97 98 Oxygen Delivery Method room air room air Intake Visit Reasons: CONGESTION/SHORT OF BREATH/ASTHMA Chief Complaint: Sinus congestion and drainage, short of breath [employer] Required: No Accompanied by: Self Is patient in pain?: No Allergies erythromycin base (Erythromycin Base) Allergy (Verified 08/17/20 12:56) Rash Medications ???Medication ???Instructions ???Recorded ???Confirmed ???Type albuterol sulfate 2.5 mg/3 mL 2.5 mg inhalation Q4-6H PRN 03/19/24 03/19/24 History (0.083 %) solution for nebulization amoxicillin 500 mg tablet 500 mg PO TID #30 tabs 03/19/24 03/19/24 Rx prednisone 10 mg tablet 10 mg PO DAILY #30 tabs 03/19/24 03/19/24 Rx semaglutide 0.25 mg or 0.5 mg (2 0.5 mg subcut QWEEK 03/19/24 03/19/24 History mg/3 mL) subcutaneous pen injector (Ozempic) [facility] Medical History (Updated 03/19/24 @ 08:55 by Blayne HERNÁNDEZ, PA) Acute sinusitis, unspecified Asthmatic bronchitis with exacerbation Asthma Seasonal allergies Type 2 diabetes mellitus Family History (Updated 03/19/24 @ 08:12 by Camila Coon) Unknown Asthma Father Diabetes Kidney disease Other Heart disease Hypertension Social History (Updated 03/19/24 @ 08:13 by Camila Coon) Smoking Status: Never smoker second hand exposure: No alcohol intake: current alcohol intake frequency: a few times a week Alcohol type: beer substance use type: does not use HPI HPI Chief Complaint: Sinus congestion and drainage, short of breath Details: MARYAM MYLES, is a 34 M who presents to the office today for initial evaluation 3-day history of progressively worsening congestion, cough with scant wheezing and mild shortness of breath. Albuterol MDI as needed with minimal assist. No complaints of fever, chills, sweats, lightheadedness/dizz iness, nausea/vomiting, chest pressure. Non-smoker. Requesting work excuse. Past medical history significant for history of asthma, diabetes, obesity. No other associated symptoms and no other alleviating/aggravat ing factors. ROS Const Constitutional: No other (As above) Exam Const General: cooperative, healthy appearing and no acute distress Orientation: alert, awake and oriented x3 HENMT Head: normal to inspection Ears: hearing grossly normal bilaterally, external ears normal, TM's normal bilaterally and EAC's normal Nose: external nose normal, nares normal, septum normal and no nasal discharge Face and sinus: normal facial exam, face symmetric and sinus tenderness maxillary Mouth: oral mucosae normal, lip normal, tongue normal and oropharynx normal Throat: posterior oropharynx normal, tonsils normal, uvula midline and no postnasal drainage Eyes General: appearance normal, both eyes and all related structures Neck Neck: normal visual inspection, full ROM, no lymphadenopathy, no meningeal signs and supple Neck mass: No Thyroid: thyroid normal Lymphatic: no lymphadenopathy noted Chest Chest palpation inspection: normal inspection of the chest Resp Effort Inspection: normal respiratory effort, able to speak in complete sentences, symmetric chest movement and cough Quality of cough: wet (Nonproductive in office today) Auscultation: Bilateral: Clear to Auscultation, Inspiratory Wheezes (Bases) and Expiratory Wheezes (bases) Cardio Palpation: normal PMI Rate: regular rate Rhythm: regular rhythm Heart Sounds: S1 normal, S2 normal, no gallops, no murmurs and no rubs Pulses: radial pulses present Skin General: no rashes or lesions noted Neuro General: patient alert, patient awake and patient oriented x3 Cognition: normal cognition Speech: speech normal Psych Appearance: grossly normal Mental Status: mental status grossly normal Mood: congruent mood Affect: normal affect Speech and Movement: speech and movement normal Attitude: cooperative Coding Level of Care Code Off vis,new,level 3 Diagnoses Asthmatic bronchitis with exacerbation J45.901 Acute sinusitis, unspecified J01.90 Assessment and Plan Assessment and Plan (1) Asthmatic bronchitis with exacerbation: Status: Acute (2) Acute sinusitis, unspecified: St (more content not included)... Normal [facility] Absolute lymphocyte countOrd ered By: Sharon Alonso on 04-24-2023 Lymphocytes Auto (Unsp spec) [#/Vol] 2.15 10*3/uL 0.83-4.51 [facility] Basophil percentageOrdered B y: Sharon Alonso on 04-24-2023 Basophils/100 WBC (Bld) 0.3 % 0-1 [facility] Bilirubin [Mass/Vol] 0.60 mg/dL 0.20-1.00 [facility] Comment on above: For patients on eltr ombopag therapy, use of Dimension [place] TBIL is not recommended. Chloride [Moles/Vol] 107 mmol/L 98-107 [facility] Cholesterol [Mass/Vol] 185 mg/dL <200 [facility] Comment on above: <200 mg/dL Desirable 200-240 mg/dL Borderline >240 mg/dL High Risk Eosinophils/100 WBC (Bld) 2.5 % 0-5 [facility] Glucose [Mass/Vol] 175 mg/dL 74-106 [facility] Comment on above: Fasting Glucose resu lt greater than or equal to 126 mg/dL suggests DIABETES MELLITUS per A.D.A. criteria. Neutrophils (Bld) [#/Vol] 3.7 10*3/uL 2.0-7.7 [facility] Neutrophils/100 WBC (Bld) 57.6 % 47-70 [facility] Potassium [Moles/Vol] 3.9 mmol/L 3.5-5.1 [facility] Protein [Mass/Vol] 7.1 g/dL 6.4-8.2 [facility] Sodium [Moles/Vol] 140 mmol/L 136-145 [facility] Triglyceride [Mass/Vol] 277 mg/dL <199 [facility] Comment on above: The drugs N-Acetylcy steine and Metamizole may falsely depress this assay.Serum Triglycerides Reference Interval Normal <150 mg/dL Borderline high 150 - 199 mg/dL High 200 - 499 mg/dL Very High > or = 500 mg/dL WBC (Bld) [#/Vol] 6.4 10*3/uL 4.4-11.0 [facility] Blood erythrocytes count (nu mber/volume)Ordered By: Sharon Alonso on 04-24-2023 RBC (Bld) [#/Vol] 5.07 10*6/uL 4.6-6.2 [facility] Blood hemoglobin measurement (mass/volume)Ordered By: Sharon Alonso on 04-24-2023 Hemoglobin (Bld) [Mass/Vol] 15.3 g/dL 13.0-16.5 [facility] Blood lymphocytes/100 leukoc ytesOrdered By: Sharon Alonso on 04-24-2023 Lymphocytes/100 WBC (Bld) 33.5 % 19-41 [facility] Blood monocytes/100 leukocyt esOrdered By: Sharon Alonso on 04-24-2023 Monocytes/100 WBC (Bld) 5.8 % 0-10 [facility] Blood platelet mean volumeOr dered By: Sharon Alonso on 04-24-2023 Platelet mean volume (Bld) [Entitic vol] 10.8 fL 6.2-12.0 [facility] CBC W/Diff, Automatedon 03-30 Absolute Lymph 2.15 X10 3/uL Normal 0.83-4.51 [facility] Comment on above: Order Comment: Order Date: 04/24/22 Order Info: [id number] - CBCD Performed By: #### L 500.4100, L500.4050, L100.0100 #### [facility] [address] [place], [address] Absolute Neut 3.7 X10 3/uL Normal 2.0-7.7 [facility] Comment on above: Order Comment: Order Date: 04/24/22 Order Info: 0184-1 - CBCD Performed By: #### L 500.4100, L500.4050, L100.0100 #### [facility] [address] [place], [address] Basophils/100 WBC (Bld) 0.3 % Normal 0-1 [facility] Comment on above: Order Comment: Order Date: 04/24/22 Order Info: 0184-1 - CBCD Performed By: #### L 500.4100, L500.4050, L100.0100 #### [facility] [address] [place], [address] Eosinophils/100 WBC (Bld) 2.5 % Normal 0-5 [facility] Comment on above: Order Comment: Order Date: 04/24/22 Order Info: 0184-1 - CBCD Performed By: #### L 500.4100, L500.4050, L100.0100 #### [facility] [address] [place], [address] Erythrocyte distribution width (RBC) [Ratio] 12.9 % Normal 11.6-14.6 [facility] Comment on above: Order Comment: Order Date: 04/24/22 Order Info: 0184-1 - CBCD Performed By: #### L 500.4100, L500.4050, L100.0100 #### [facility] [address] [place], [address] Hematocrit (Bld) [Volume fraction] 45.5 % Normal 40-54 [facility] Comment on above: Order Comment: Order Date: 04/24/22 Order Info: 0184-1 - CBCD Performed By: #### L 500.4100, L500.4050, L100.0100 #### [facility] [address] [place], [address] Hemoglobin (Bld) [Mass/Vol] 15.3 g/dL Normal 13.0-16.5 [facility] Comment on above: Order Comment: Order Date: 04/24/22 Order Info: 018- - CBCD Performed By: #### L 500.4100, L500.4050, L100.0100 #### [facility] [address] [place], [address] IG% 0.300 Normal 0.0-0.9 [facility] Comment on above: Order Comment: Order Date: 04/24/22 Order Info: 018- - CBCD Result Comment: IG% - Immature Granulocytes (promyelocytes, myelocytes and metamyelocytes) > 1% indicates that a LEFT SHIFT is Present. Performed By: #### L 500.4100, L500.4050, L100.0100 #### [facility] [address] [place], [address] Lymphocytes/100 WBC (Bld) 33.5 % Normal 19-41 [facility] Comment on above: Order Comment: Order Date: 04/24/22 Order Info: 0184- - CBCD Performed By: #### L 500.4100, L500.4050, L100.0100 #### [facility] [address] [place], [address] MCH (RBC) [Entitic mass] 30.2 pg Normal 27.0-32.0 [facility] Comment on above: Order Comment: Order Date: 04/24/22 Order Info: 0184- - CBCD Performed By: #### L 500.4100, L500.4050, L100.0100 #### [facility] [address] [place], [address] MCHC (RBC) [Mass/Vol] 33.6 g/dL Normal 32-36 [facility] Comment on above: Order Comment: Order Date: 04/24/22 Order Info: 0184-1 - CBCD Performed By: #### L 500.4100, L500.4050, L100.0100 #### [facility] [address] [place], [address] MCV (RBC) [Entitic vol] 89.7 fL Normal 80-94 [facility] Comment on above: Order Comment: Order Date: 04/24/22 Order Info: 0184-1 - CBCD Performed By: #### L 500.4100, L500.4050, L100.0100 #### [facility] [address] [place], [address] Monocytes/100 WBC (Bld) 5.8 % Normal 0-10 [facility] Comment on above: Order Comment: Order Date: 04/24/22 Order Info: 018- - CBCD Performed By: #### L 500.4100, L500.4050, L100.0100 #### [facility] [address] [place], [address] Neutrophils/100 WBC (Bld) 57.6 % Normal 47-70 [facility] Comment on above: Order Comment: Order Date: 04/24/22 Order Info: 0184-1 - CBCD Performed By: #### L 500.4100, L500.4050, L100.0100 #### [facility] [address] [place], [address] Nucleated RBC (Bld) [#/Vol] 0 10*3/uL Normal 0-5 [facility] Comment on above: Order Comment: Order Date: 04/24/22 Order Info: 0184-1 - CBCD Performed By: #### L 500.4100, L500.4050, L100.0100 #### [facility] [address] [place], [address] Platelet mean volume (Bld) [Entitic vol] 10.8 fL Normal 6.2-12.0 [facility] Comment on above: Order Comment: Order Date: 04/24/22 Order Info: 0184-1 - CBCD Performed By: #### L 500.4100, L500.4050, L100.0100 #### [facility] [address] [place], [address] Platelets (Bld) [#/Vol] 242 10*3/uL Normal 150-450 [facility] Comment on above: Order Comment: Order Date: 04/24/22 Order Info: 0184-1 - CBCD Performed By: #### L 500.4100, L500.4050, L100.0100 #### [facility] [address] [place], [address] RBC (Bld) [#/Vol] 5.07 10*6/uL Normal 4.6-6.2 [facility] Comment on above: Order Comment: Order Date: 04/24/22 Order Info: 0184-1 - CBCD Performed By: #### L 500.4100, L500.4050, L100.0100 #### [facility] [address] [place], [address] RDW SD 42.0 fl Normal 35.1-43.9 [facility] Comment on above: Order Comment: Order Date: 04/24/22 Order Info: 0184-1 - CBCD Performed By: #### L 500.4100, L500.4050, L100.0100 #### [facility] [address] [place], [address] WBC (Bld) [#/Vol] 6.4 10*3/uL Normal 4.4-11.0 [facility] Comment on above: Order Comment: Order Date: 04/24/22 Order Info: 0184-1 - CBCD Performed By: #### L 500.4100, L500.4050, L100.0100 #### [facility] [address] [place], [address] Comprehensive Metabolic Prof ilon 04-24-2023 Albumin [Mass/Vol] 3.8 g/dL Normal 3.2-5.0 [facility] Comment on above: Order Comment: Order Date: 04/24/22 Order Info: [id number] - CMP Order Info: [id number] - LIPID Performed By: #### L 500.4100, L500.4050, L100.0100 #### [facility] [address] [place], [address] Albumin/Globulin [Mass ratio] 1.2 {ratio} Normal 0.9-2.4 [facility] Comment on above: Order Comment: Order Date: 04/24/22 Order Info: [id number] - CMP Order Info: [id number] - LIPID Performed By: #### L 500.4100, L500.4050, L100.0100 #### [facility] [address] [place], [address] ALK P 74 U/L Normal 45-117 [facility] Comment on above: Order Comment: Order Date: 04/24/22 Order Info: [id number] - CMP Order Info: [id number] - LIPID Performed By: #### L 500.4100, L500.4050, L100.0100 #### [facility] [address] [place], [address] ALT [Catalytic activity/Vol] 35 U/L Normal 16-61 [facility] Comment on above: Order Comment: Order Date: 04/24/22 Order Info: [id number] - CMP Order Info: [id number] - LIPID Performed By: #### L 500.4100, L500.4050, L100.0100 #### [facility] [address] [place], [address] AST [Catalytic activity/Vol] 15 U/L Normal 15-37 [facility] Comment on above: Order Comment: Order Date: 04/24/22 Order Info: [id number] - CMP Order Info: [id number] - LIPID Performed By: #### L 500.4100, L500.4050, L100.0100 #### [facility] [address] [place], [address] Bilirubin [Mass/Vol] 0.60 mg/dL Normal 0.20-1.00 [facility] Comment on above: Order Comment: Order Date: 04/24/22 Order Info: 0786- - CMP Order Info: [id number] - LIPID Result Comment: For patients on eltrombopag therapy, use of Dimension [place] TBIL is not recommended. Performed By: #### L 500.4100, L500.4050, L100.0100 #### [facility] [address] [place], [address] BUN/CRE 20.1 RATIO High 10-20 [facility] Comment on above: Order Comment: Order Date: 04/24/22 Order Info: 0786- - CMP Order Info: [id number] - LIPID Performed By: #### L 500.4100, L500.4050, L100.0100 #### [facility] [address] [place], [address] CA,Total 9.1 mg/dL Normal 8.5-10.1 [facility] Comment on above: Order Comment: Order Date: 04/24/22 Order Info: [id number] - CMP Order Info: [id number] - LIPID Performed By: #### L 500.4100, L500.4050, L100.0100 #### [facility] [address] [place], [address] Chloride [Moles/Vol] 107 mmol/L Normal 98-107 [facility] Comment on above: Order Comment: Order Date: 04/24/22 Order Info: [id number] - CMP Order Info: [id number] - LIPID Performed By: #### L 500.4100, L500.4050, L100.0100 #### [facility] [address] [place], [address] CO2 [Moles/Vol] 27.0 mmol/L Normal 21.0-32.0 [facility] Comment on above: Order Comment: Order Date: 04/24/22 Order Info: [id number] - CMP Order Info: [id number] - LIPID Performed By: #### L 500.4100, L500.4050, L100.0100 #### [facility] [address] [place], [address] Creatinine [Mass/Vol] 0.80 mg/dL Normal 0.70-1.30 [facility] Comment on above: Order Comment: Order Date: 04/24/22 Order Info: [id number] - CMP Order Info: [id number] - LIPID Result Comment: The validity of the calculated GFR GFRAA in patients over 70 years has not been determined. Clinical correlation is essential. Performed By: #### L 500.4100, L500.4050, L100.0100 #### [facility] [address] [place], [address] EST GFR - AA 144 mL/min Normal >60 [facility] Comment on above: Order Comment: Order Date: 04/24/22 Order Info: [id number] - CMP Order Info: [id number] - LIPID Result Comment: Afri can Cymraes GFR Calc Performed By: #### L 500.4100, L500.4050, L100.0100 #### [facility] [address] [place], [address] GAP 6 Normal 5-15 [facility] Comment on above: Order Comment: Order Date: 04/24/22 Order Info: [id number] - CMP Order Info: [id number] - LIPID Performed By: #### L 500.4100, L500.4050, L100.0100 #### [facility] [address] [place], [address] GFR/1.73 sq M.predicted among non-blacks MDRD (S/P/Bld) [Vol rate/Area] 119 mL/min/{1.73_m2} Normal >60 [facility] Comment on above: Order Comment: Order Date: 04/24/22 Order Info: [id number] - CMP Order Info: [id number] - LIPID Result Comment: Non- GFR Calc Performed By: #### L 500.4100, L500.4050, L100.0100 #### [facility] [address] [place], [place], [address] Globulin (S) [Mass/Vol] 3.3 g/dL Normal 2.2-4.2 [facility] Comment on above: Order Comment: Order Date: 04/24/22 Order Info: [id number] - CMP Order Info: [id number] - LIPID Performed By: #### L 500.4100, L500.4050, L100.0100 #### [facility] [address] [place], [address] Glucose [Mass/Vol] 175 mg/dL High 74-106 [facility] Comment on above: Order Comment: Order Date: 04/24/22 Order Info: [id number] - CMP Order Info: [id number] - LIPID Result Comment: Fast ing Glucose result greater than or equal to 126 mg/dL suggests DIABETES MELLITUS per A.D.A. criteria. Performed By: #### L 500.4100, L500.4050, L100.0100 #### [facility] [address] [place], [address] Potassium [Moles/Vol] 3.9 mmol/L Normal 3.5-5.1 [facility] Comment on above: Order Comment: Order Date: 04/24/22 Order Info: [id number] - CMP Order Info: [id number] - LIPID Performed By: #### L 500.4100, L500.4050, L100.0100 #### [facility] [address] [place], [address] Sodium [Moles/Vol] 140 mmol/L Normal 136-145 [facility] Comment on above: Order Comment: Order Date: 04/24/22 Order Info: [id number] - CMP Order Info: [id number] - LIPID Performed By: #### L 500.4100, L500.4050, L100.0100 #### [facility] [address] [place], [address] T PROT 7.1 g/dL Normal 6.4-8.2 [facility] Comment on above: Order Comment: Order Date: 04/24/22 Order Info: [id number] - CMP Order Info: [id number] - LIPID Performed By: #### L 500.4100, L500.4050, L100.0100 #### [facility] [address] [place], [address] Urea nitrogen [Mass/Vol] 16 mg/dL Normal 7-18 [facility] Comment on above: Order Comment: Order Date: 04/24/22 Order Info: [id number] - CMP Order Info: [id number] - LIPID Performed By: #### L 500.4100, L500.4050, L100.0100 #### [facility] [address] [place], [address] Determination of erythrocyte mean corpuscular volume (MCV)Ordered By: Sharon Alonso on 04-24-2023 MCV (RBC) [Entitic vol] 89.7 fL 80-94 [facility] Hematocrit Auto (Bld) [Volum e fraction]Ordered By: Sharon Alonso on 04-24-2023 Hematocrit (Bld) [Volume fraction] 45.5 % 40-54 [facility] - Chemistry and C hemistry - challengeOrdered By: Sharon Alonso on 04-24-2023 ALP [Catalytic activity/Vol] 74 U/L 45-117 [facility] ALT [Catalytic activity/Vol] 35 U/L 16-61 [facility] CO2 [Moles/Vol] 27.0 mmol/L 21.0-32.0 [facility] Globulin (S) [Mass/Vol] 3.3 g/dL 2.2-4.2 [facility] Urea nitrogen/Creatinine [Mass ratio] 20.1 mg/mg 10-20 [facility] - Hematology and Cell countsOrdered By: Sharon Alonso on 04-24-2023 Erythrocyte distribution width (RBC) [Entitic vol] 42.0 fL 35.1-43.9 [facility] Erythrocyte distribution width (RBC) [Ratio] 12.9 % 11.6-14.6 [facility] Immature granulocytes/100 WBC (Bld) 0.300 % 0.0-0.9 [facility] Comment on above: IG% - Immature Granu locytes (promyelocytes, myelocytes and metamyelocytes) > 1% indicates that a LEFT SHIFT is Present. MCH (RBC) [Entitic mass] 30.2 pg 27.0-32.0 [facility] Nucleated RBC/100 WBC (Bld) [Ratio] 0 % 0-5 [facility] Lipid Profileon 04-24-2023 Cholesterol [Mass/Vol] 185 mg/dL Normal 200 [facility] Comment on above: Order Comment: Order Date: 04/24/22 Order Info: [id number] - CMP Order Info: [id number] - LIPID Result Comment: <200 mg/dL Desirable 200-240 mg/dL Borderline >240 mg/dL High Risk Performed By: #### L 500.4100, L500.4050, L100.0100 #### [facility] [place], [address] Cholesterol in HDL [Mass/Vol] 46 mg/dL Normal [facility] Comment on above: Order Comment: Order Date: 04/24/22 Order Info: [id number] - CMP Order Info: [id number] - LIPID Result Comment: The drugs N-Acetylcysteine and Metamizole may falsely depress this assay. Reference Range HDL <40 mg/dL Low HDL Cholesterol HDL >or= 60 mg/dL High HDL Cholesterol Performed By: #### L 500.4100, L500.4050, L100.0100 #### [facility] [address] [place], [address] Cholesterol in LDL [Mass/Vol] 84 mg/dL Normal 0-130 [facility] Comment on above: Order Comment: Order Date: 04/24/22 Order Info: [id number] - CMP Order Info: [id number] - LIPID Performed By: #### L 500.4100, L500.4050, L100.0100 #### [facility] [address] [place], [address] Cholesterol in VLDL [Mass/Vol] 55 mg/dL High 5-40 [facility] Comment on above: Order Comment: Order Date: 04/24/22 Order Info: [id number] - CMP Order Info: [id number] - LIPID Performed By: #### L 500.4100, L500.4050, L100.0100 #### [facility] [address] [place], [address] Triglyceride [Mass/Vol] 277 mg/dL High [facility] Comment on above: Order Comment: Order Date: 04/24/22 Order Info: [id number] - [facility] Order Info: [id number] - LIPID Result Comment: The drugs N-Acetylcysteine and Metamizole may falsely depress this assay. Serum Triglycerides Reference Interval Normal <150 mg/dL Borderline high 150 - 199 mg/dL High 200 - 499 mg/dL Very High > or = 500 mg/dL Performed By: #### L 500.4100, L500.4050, L100.0100 #### [facility] [address] [place], [address] MCHC Auto (RBC) [Mass/Vol]Or dered By: Sharon Alonso on 04-24-2023 MCHC (RBC) [Mass/Vol] 33.6 g/dL 32-36 [facility] No Panel InformationOrdered By: Sharon Alonso on 04-24-2023 Estimated GFR (MDRD) Amer 144 mL/min >60 [facility] Comment on above: GFR Calc Estimated GFR (MDRD) Non-Af Amer 119 mL/min >60 [facility] Comment on above: Non- GFR Calc Platelets bldOrdered By: Swapna Alonso on 04-24-2023 Platelets (Bld) [#/Vol] 242 10*3/uL 150-450 [facility] Serum or plasma albumin alcides urement (mass/volume)Ordered By: Sharon Alonso on 04-24-2023 Albumin [Mass/Vol] 3.8 g/dL 3.2-5.0 [facility] Serum or plasma albumin/glob ulin mass ratioOrdered By: Sharon Alonso on 04-24-2023 Albumin/Globulin [Mass ratio] 1.2 {ratio} 0.9-2.4 [facility] Serum or plasma calcium alcides urement (mass/volume)Ordered By: Sharon Alonso on 04-24-2023 Calcium [Mass/Vol] 9.1 mg/dL 8.5-10.1 [facility] Serum or plasma cholesterol in HDL measurement (mass/volume)Ordered By: Sharon Alonso on 04-24-2023 Cholesterol in HDL [Mass/Vol] 46 mg/dL >40 [facility] Comment on above: The drugs N-Acetylcy steine and Metamizole may falsely depress this assay. Reference Range HDL <40 mg/dL Low HDL Cholesterol HDL >or= 60 mg/dL High HDL Cholesterol Serum or plasma cholesterol in VLDL measurement (mass/volume)Ordered By: Sharon Alonso on 04-24-2023 Cholesterol in VLDL [Mass/Vol] 55 mg/dL 5-40 [facility] Serum or plasma creatinine m easurement (mass/volume)Ordered By: Sharon Alonso on 04-24-2023 Creatinine [Mass/Vol] 0.80 mg/dL 0.70-1.30 [facility] Comment on above: The validity of the calculated GFR & GFRAA in patients over 70 years has not been determined. Clinical correlation is essential. Serum or plasma low density lipoprotein (LDL) cholesterol measurement (mass/volume)Ordered By: Sharon Alonso on 04-24-2023 Cholesterol in LDL [Mass/Vol] 84 mg/dL 0-130 [facility] Serum or plasma urea nitroge n measurement (mass/volume)Ordered By: Sharon Alonso on 04-24-2023 Urea nitrogen [Mass/Vol] 16 mg/dL 7-18 [facility] Thin prep Papanicolaou smear with manual screeningOrdered By: Sharon Alonso on 04-24-2023 Thin prep Papanicolaou smear with manual screening 15 U/L 15-37 [facility] Thin prep Papanicolaou smear with manual screening 6 5-15 [facility] Vital Signs Date Time Vital Sign Value Performing Clinician Faci lity 09-03-2024 20:10-0500 Body height 198.1 cm ABHIJIT LEMUS DO [facility] 09-03-2024 20:10-0500 Body temperature 97.7 [degF] ABHIJIT LEMUS DO [facility] 09-03-2024 20:10-0500 Body weight 131.8 kg ABHIJIT LEMUS DO [facility] 09-03-2024 20:10-0500 Diastolic Blood Pressure Non-Invasive 105 mm[Hg] ABHIJIT LEMUS DO [facility] 09-03-2024 20:10-0500 Heart rate 95 /min ABHIJIT LEMUS DO [facility] 09-03-2024 20:10-0500 Respiratory rate 18 /min ABHIJIT LEMUS DO [facility] 09-03-2024 20:10-0500 Systolic Blood Pressure Non-Invasive 145 mm[Hg] ABHIJIT LEMUS DO [facility] 04-24-2023 16:17-0400 Body height 195.58 cm [facility] Encounters Encounter Date Encounter Type Care Provider Facility Start: 09-03-2024 End: 09-03-2024 Emergency department patient visit ABHIJIT LEMUS DO [facility] Start: 03-19-2024 End: 03-19-2024 ambulatory Blayne HERNÁNDEZ Facility:[facility] Start: 04-24-2023 End: 04-24-2023 Patient encounter procedure [facility] Start: 04-24-2023 End: 04-24-2023 ambulatory Sharon Alonso [facility] Work Phone: Immunizations Immunization Date Immunization Notes Care Provider Fa [place] 09-03-2024 tetanus toxoid, redu val diphtheria toxoid, and acellular pertussis vaccine, adsorbed ABHIJIT LEMUS DO [facility] Payers Date Payer Category Payer Private Health Insurance [id number] 2023 Self-pay [id number] 1990 Unknown [id number] Unknown [facility] [id number] Unknown [id number] Unknown [id number] Social History Date Type Detail Facility [facility]: [facility] Start: 01-21-2018 Occasional [facility] Start: 01-21-2018 None [facility] Start: 01-21-2018 With Family [facility] Start: 07-16-2019 Chew [facility] Start: 1990 Sex Assigned At Male [facility] Tobacco Nicotine Use: Qu it. Type: Oral (Snuff, Chew). [facility] Tobacco smoking status No Smokin g Status Entered [facility] Medical Equipment Procedure Code Equipment Code Equipment Origin al Text Equipment Identifier Dates Pen Needle, Diab etic (Comfort Ez Pen Eolia) 31 gauge x 01/11 needle Start: 03-19-2018 End: 03-20-2018 Mental Status Date Assessment Result Facility 09-03-2024 Mental Status Orientation Oriented x 4 [facility] Discharge instructions 09-03-2024 Note Date & Type Note Facility 09-03-2024 Hospital Discharg e instructions Patient Education 09/03/2024 21:21:14 Laceration, Extremity: Suture, Staple, or Tape Extremity Laceration: Stitches, Alexi, or Tape A laceration is a cut through the skin. If it is deep, it may require stitches or alexi to close so it can heal. Minor cuts may be treated with surgical tape closures, or skin glue. X-rays may be done if something may have entered the skin through the cut. You may also need a tetanus shot if you are not up to date on this vaccine. Home care Follow the healthcare provider s instructions on how to care for the cut. Wash your hands with soap and warm water before and after caring for your wound. This is to help prevent infection. Keep the wound clean and dry. If a bandage was applied and it becomes wet or dirty, replace it. Otherwise, leave it in place for the first 24 hours, then change it once a day or as directed. If stitches or alexi were used, clean the wound daily: oAfter removing the bandage, wash the area with soap and water. Use a wet cotton swab to loosen and remove any blood or crust that forms. oAfter cleaning, keep the wound clean and dry. Talk with your healthcare provider before putting any antibiotic ointment on the wound. Reapply the bandage. You may remove the bandage to shower as usual after the first 24 hours, but don't soak the area in water (no swimming) until the stitches or alexi are removed. If surgical tape closures were used, keep the area clean and dry. If it becomes wet, blot it dry with a towel. Let the surgical tape fall off on its own. The healthcare provider may prescribe an antibiotic cream or ointment to prevent infection. He or she may also prescribe an antibiotic pill. Don't stop taking this medicine until you have finished it all or the provider tells you to stop. The provider may also prescribe medicine for pain. Follow the instructions for taking these medicines. Don't do activities that may reopen your wound. Follow-up care Follow up with your healthcare provider, or as advised. Most skin wounds heal within 10 days. But an infection may sometimes occur even with proper treatment. Check the wound daily for the signs of infection listed below. Stitches and alexi should be removed within 7 to14 days. If surgical tape closures were used, you may remove them after 10 days if they have not fallen off by then. When to seek medical advice Call your healthcare provider right away if any of these occur: Wound bleeding not controlled by direct pressure Signs of infection, including increasing pain in the wound, increasing wound redness or swelling, or pus or bad odor coming from the wound Fever of 100.4 F (38 C) or higher, or as directed by your healthcare provider Stitches or alexi come apart or fall out or surgical tape falls off before 7 days Wound edges reopen Wound changes colors Numbness occurs around the wound Decreased movement around the injured area [id number] [employer]. [address] [place] [address]. All rights reserved. This information is not intended as a substitute for professional medical care. Always follow your healthcare professional's instructions. Follow Up Care 09/03/2024 20:03:14 With:AILEEN RAINES DO Address: [address] [place] [address] [place] [address] [phone] When:2-4 days [facility] Clinical Note 09-03-2024 Note Date & Type Note Facility 09-03-2024 Note Discharge Instructions Thank you for allowing [facility] to assist you with your healthcare needs. The following is important discharge information regarding your hospital visit. Diagnosis from Today's Visit Laceration of right forearm What to Do Next Instructions from Your Care Team Follow-up with primary care or urgent care in 7 days for suture removal. Discharge Return to Work, School, or Sports (Return to Work, School, or Sports) - Ordered -- within 1-2 days, May return to: work, 09/03/24 21:20:00 EST Post Acute Orders No qualifying data available. You Need to Schedule the Following Appointments Follow Up with AILEEN RAINES DO When:Within 2-4 days Where:[address] [facility] [place] [address] [phone] Allergies erythromycin Immunizations This Visit Given Vaccine Datetetanus/diphth/pertuss (Tdap) adult/adol 09/03/2024 Medications Please ask your primary doctor or pharmacist before taking any other medication not listed, including over the counter drugs, herbal medications, vitamins and or supplements as they may interact with your home medications. Please take this list to your next doctor s visit. Bring all medications you take, including over the counter medications, herbals and other supplements with you to your doctor s visit. Patients and families are reminded to discard old lists and to update any records with all medication providers or retail pharmacies. Education Materials Extremity Laceration: Stitches, Sprague, or Tape A laceration is a cut through the skin. If it is deep, it may require stitches or alexi to close so it can heal. Minor cuts may be treated with surgical tape closures, or skin glue. X-rays may be done if something may have entered the skin through the cut. You may also need a tetanus shot if you are not up to date on this vaccine. Home care Follow the healthcare provider s instructions on how to care for the cut. Wash your hands with soap and warm water before and after caring for your wound. This is to help prevent infection. Keep the wound clean and dry. If a bandage was applied and it becomes wet or dirty, replace it. Otherwise, leave it in place for the first 24 hours, then change it once a day or as directed. If stitches or alexi were used, clean the wound daily: oAfter removing the bandage, wash the area with soap and water. Use a wet cotton swab to loosen and remove any blood or crust that forms. oAfter cleaning, keep the wound clean and dry. Talk with your healthcare provider before putting any antibiotic ointment on the wound. Reapply the bandage. You may remove the bandage to shower as usual after the first 24 hours, but don't soak the area in water (no swimming) until the stitches or alexi are removed. If surgical tape closures were used, keep the area clean and dry. If it becomes wet, blot it dry with a towel. Let the surgical tape fall off on its own. The healthcare provider may prescribe an antibiotic cream or ointment to prevent infection. He or she may also prescribe an antibiotic pill. Don't stop taking this medicine until you have finished it all or the provider tells you to stop. The provider may also prescribe medicine for pain. Follow the instructions for taking these medicines. Don't do activities that may reopen your wound. Follow-up care Follow up with your healthcare provider, or as advised. Most skin wounds heal within 10 days. But an infection may sometimes occur even with proper treatment. Check the wound daily for the signs of infection listed below. Stitches and alexi should be removed within 7 to14 days. If surgical tape closures were used, you may remove them after 10 days if they have not fallen off by then. When to seek medical advice Call your healthcare provider right away if any of these occur: Wound bleeding not controlled by direct pressure Signs of infection, including increasing pain in the wound, increasing wound redness or swelling, or pus or bad odor coming from the wound Fever of 100.4 F (38 C) or higher, or as directed by your healthcare provider Stitches or alexi come apart or fall out or surgical tape falls off before 7 days Wound edges reopen Wound changes colors Numbness occurs around the wound Decreased movement around the injured area [phone] [employer]. [address] [place] [address]. All rights reserved. This information is not intended as a substitute for professional medical care. Always follow your healthcare professional's instructions. Additional Information VACCINATE! IT SAVES LIVES! Members of the community who have not yet received the COVID-19 vaccine and would like to receive it can visit one of [facility] vaccine clinics. There are many vaccine clinic locations within the [facility]. For locations and available times, please visit www.gettheshot.coronavirus.[place].gov/. It is important to note that some COVID mobile vaccine clinics are held outdoors and may be canceled in rainy or stormy conditions. To learn more about pediatric vaccinations (ages 5-11), we invite you to visit the [facility] webpage. [email or web address].[email or web address]/pages/[email or web address]-Asunh-Ngqbhukfltr-Frequently-[email or web address] -Questions.html To learn more about the COVID-19 vaccine, we invite you to visit the CDC website for a list of frequently asked questions. https://www.cdc.gov/coronavirus/2019-n cov/vaccines/faq.html [facility] [employer] [facility] Patient Portal Access Instructions: Stay connected with your healthcare team and access your personal medical information anytime with the [employer] [facility] Patient Portal. If you would like a full copy of your medical records please contact the [facility] Medical Records Department Sunday through Sunday between 8a.m. and 4:30p.m. Please follow the directions below to access the portal: 1.Access the email account you provided upon registration to the [facility].2.Look for an invitation email from [facility].3.Open the email and access the invitation link: Accept Invitation to [facility]4.Fill in the required hoskins to create your account. Sign into [email or web address] with your username and password that you created in the above steps to stay up to date. You can then view a summary of results, a summary of your visits, and the ability to download your summaries to your computer or send the information securely to a physician. Remember that your healthcare information is confidential, so carefully consider who you will allow to register on the [facility] Patient Portal for access to your information. You can also access the [facility] Patient Portal on the [employer]. Simply click on Health Records under Health Data and then click on the [email or web address] logo. HOW TO SAFELY DISPOSE OF PRESCRIPTION MEDICATIONS Please use one of the following methods to safely dispose of your unused medications. 1.Use a drug disposal kit: the drug disposal pouch allows you to safely discard your old and unused drugs. Ask your nurse to give you one when you are discharged.2.Visit a local take-back location: Many local pharmacies and police departments have programs that collect old and unwanted prescription drugs. Call your local pharmacy or go to http://bit.Meridium/3M1Pj8o to find one close to you.3.Make use of household items: Use cat litter or old coffee grounds to dispose medications if other options are not available. Mix your drugs with these household products, seal them in an airtight container and throw it into the garbage. Call [facility]: [phone] to be sure your drugs can be disposed of in this way. Some medicines may require a different approach.4.Never flush your medications down the toilet. IF YOU HAVE BEEN PRESCRIBED AN OPIOIDS FOR PAIN If you have been prescribed an opioid (such as hydrocodone, oxycodone or morphine), it is critical to understand the possible side effects and risks of opioid pain medications. Even when taken as directed, opioids can have several side effects including: Tolerance, meaning you might need to take more of a medication for the same pain relief. Nausea, vomiting and/or constipation. Sleepiness, dizziness, dry mouth, confusion, depression or itching. Physical dependence, meaning you have withdrawal symptoms when a medication is stopped ? this can develop within a few days. KNOW YOUR RESPONSIBILITIES It is important to know exactly how much and how often to take the opioid pain medications you are prescribed. Never take opioids in higher amounts or more often than prescribed. Do not combine opioids with alcohol or other drugs that cause drowsiness, such as benzodiazepines, also known as benzos, including diazepam and alprazolam, muscle relaxants or sleep aids. Never sell or share prescription opioids. This is illegal. Store opioids in a secure place and out of reach of others (including children, family, friends and visitors). The last page(s) of this document has been signed and retained as a CHART COPY Signatures Patient Education Materials Laceration, Extremity: Suture, Staple, or Tape Medication Leaflets My discharge plan and instructions have been reviewed and explained to me and ISHAMEKA MATTHEW J understand my current condition and have read and understand these discharge instructions. I have received a written copy of the plan/instructions. If I have questions, I am aware that I should contact my doctor. 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 HISTORY: ORDERING SYSTEM PROVIDED HISTORY: Reason for Exam: laceration, foreign body FINDINGS: There is no evidence of acute fracture. There is normal alignment. No acute joint abnormality. No focal osseous lesion. Mid forearm soft tissue laceration without radiodense foreign body. IMPRESSION: Mid forearm soft tissue laceration without radiodense foreign body. Interpreted by: Caio Walton Preliminary Report By: Caio Walton Electronically signed By Caio Walton Dictated Date: 09/03/2024 8:43:27 PM Prelim Date: 09/03/2024 8:47:01 PM Sign Date: 09/03/2024 8:47:01 PM Ordering Provider: ABHIJIT LEUMS [facility] Evaluation + Plan note Note Date & Type Note Facility Evaluation + Plan note No data available for this section [facility] Evaluation note Note Date & Type Note Facility Evaluation note No assessment information availa [facility] Work Phone: Family History No Family History Records Found Relationship Condition Age at Onset Recorded Date/T luis Not Specified Asthma Unknown father Diabetes mellitus Unknown Kidney disorder Unknown Advance Directives No Advanced Directives Records Found Advance Directive Response Recorded Date/ Time Living Will No August 17 12:57pm Power of Waste Baler No August 17, 2020 12:57pm Summary Purpose Additional Source Comments Care Teams (unrecognized sec tion and content) Team Status: Active Member Role Status Dates No Primary Care Physician Family Provider Active Sharon Alonso DO Primary Care Provider Active Team Status: Inactive Member Role Status Dates Sharon Alonso DO Primary Care Provider, Attending Provider Active Goals (unrecognized section and content) Goals may be documented in a n alternate section No data available for this section (unrecognized sect ion and content) No Status Records FoundNo Status Records Found INFORMATION SOURCE (unrecogn ized section and content) DATE CREATED AUTHOR 03/21/2024 [facility] DATE CREATED AUTHOR AUTHORBarrett SWANSON 09/08/2024 [facility] FOR RECORDS PERTAINING TO PATIENTS WHO ARE OR HAVE BEEN ENROLLED IN A CHEMICAL DEPENDENCY/SUBSTANCEABUSE PROGRAM, SOME INFORMATION MAY BE OMITTED. This clinical summary was aggregated from multiple sources. Caution should be exercised in using it in the provision of clinical care. This summary normalizes information from multiple sources, and as a consequence, information in this document may materially change the coding, format and clinical context of patient data. In addition, data may be omitted in some cases. CLINICAL DECISIONS SHOULD BE BASED ON THE PRIMARY CLINICAL RECORDS. [employer] provides no warranty or guarantee of the accuracy or completeness of information in this document.
[2025-04-02 13:09] LABS: Absolute Lymphocyte Count 1.79 X10^3/uL (0.83-4.51); Basophil# 0.05 X10^3/uL; Basophil% 0.9 % (0-1); Eosinophil# 0.34 X10^3/uL; Eosinophils% 6.1 % (0-5); Hematocrit 44.3 % (40-54); Hemoglobin 15.3 g/dL (13.0-16.5); Lymphocyte # 1.79 X10^3/ul (0.83-4.51); Lymphocyte % 32.3 % (19-41); Mean Corp Hgb Conc 34.5 g/dL (32-36); Mean Corpuscular Hgb 30.4 pg (27.0-32.0); Mean Corpuscular Volume 87.9 fL (80-94); Mean Platelet Vol. 10.7 fl (6.2-12.0); Monocyte# 0.34 X10^3/uL; Monocyte% 6.1 % (0-10); NRBC Flagged by Analyzer 0 % (0-5); Neutrophil # 3.01 X10^3/uL (2.7-7.7); Neutrophil % 54.4 % (47-70); Platelet Count 195 K/mm3 (150-450); RBC Distribution Width CV 12.4 % (11.6-14.6); RBC Distribution Width SD 39.5 fl (35.1-43.9); Red Blood Count 5.04 M/mm3 (4.6-6.2); White Blood Count 5.5 K/mm3 (4.4-11.0)
[2025-04-02 13:19] LABS: Microalbumin,Random Urine 32.3 mg/L (NO RANGE EST.)
[2025-04-02 13:22] LABS: Hemoglobin A1c 8.9 % (<=5.6)
[2025-04-02 13:33] LABS: Cholesterol 185 mg/dL (<=200); High Density Lipoprotein 35 mg/dL; Low Density Lipoprotein Calc. 81 mg/dL; Triglycerides 342 mg/dL; Very Low Density Lipoprotein 68 mg/dL (5-40); cholesterol:hdl ratio screen 5.23
== END | disposition home or self-care (01) ==
LOC: VSLAB 08:38
PROVIDERS: PCP Family Medicine; Visit Provider Family Medicine
DX: E11.9 Type 2 diabetes mellitus without complications (principal)
CPT/HCPCS: 36415; 80061; 82043; 83036; 85025